=== PATIENT | female | born 1945 | race Caucasian/White ===

== ENCOUNTER 2017-09-16 13:17 | Emergency (ER) | payer MEDICARE, OTHER ==
[~2017-09-16 13:17] MED LIST: Sodium Chloride 0.9% 1,000 ML BAG ONE
[2017-09-16] MEDS ORDERED: Ondansetron HCl/PF 4 MG/2 ML Vial ONE (14:18)
[2017-09-16] MEDS ORDERED: MORPHINE 10 MG/ML SYRINGE ONE ×2 (14:19→15:16)
[2017-09-16] MEDS ORDERED: diphenhydrAMINE 50 MG/ML VIAL ONE (14:20)
[2017-09-16] MEDS ORDERED: Ketorolac Tromethamine 30 MG/ML VIAL ONE (14:20)
[2017-09-16] MEDS ORDERED: Metoclopramide HCl 10 MG/2 ML VIAL ONE ×3 (14:20→14:21)
[2017-09-16] MEDS ORDERED: cloNIDine 0.1 MG TAB ONE (15:51)
[2017-09-16] MEDS ORDERED: Labetalol HCl 100 MG/20 ML VIAL ONE (16:44)
== END 2017-09-16 18:10 | disposition home or self-care (01) ==
LOC: MADERS 13:17
DX: G43.909 Migraine, unspecified, not intractable, without status migrainosus (principal); I10 Essential (primary) hypertension; M06.9 Rheumatoid arthritis, unspecified
CPT/HCPCS: 96361; 96374; 96375; 96376; J1200; J1885; J2270; J2405; J2765

== ENCOUNTER 2017-10-19 21:10 | Emergency (ER) | payer MEDICARE ==
[2017-10-19] MEDS ORDERED: MORPHINE 10 MG/ML SYRINGE ONE (21:55)
[2017-10-19] MEDS ORDERED: Promethazine HCl 25 MG/ML VIAL ONE (21:55)
== END 2017-10-19 22:25 | disposition home or self-care (01) ==
LOC: MADERS 21:10
DX: R11.2 Nausea with vomiting, unspecified (principal); I10 Essential (primary) hypertension; G43.909 Migraine, unspecified, not intractable, without status migrainosus; M06.9 Rheumatoid arthritis, unspecified
CPT/HCPCS: 96372; J2270; J2550

== ENCOUNTER 2018-03-15 18:16 | Emergency (ER) | payer MEDICARE ==
[2018-03-15] MEDS ORDERED: Acetaminophen 500 MG TAB ONE (19:07)
[2018-03-15 19:22] LABS: #Basophils 0.1 thou/uL (0.0-0.2); #Eosinphils 0.2 thou/uL (0.0-0.7); #Lymphocytes 2.1 thou/uL (1.20-3.40); #Monocytes 1.3 thou/uL (0.11-0.59); %Basophils 0.6 % (0.0-1.0); %Lymphocytes 17.9 % (21.0-51.0); %Monocytes 11.1 % (0.0-10.0); %Neutrophils 68.4 % (42.0-75.0); Mean Corpuscular HGB CONC 34.1 g/dL (32.0-36.0); Mean Corpuscular Volume 88.1 fL (78.0-98.0); Mean Platelet Volume 6.3 fL (7.4-10.4); Platelet Count 185 thou/uL (130-400); RBC Distribution Width 12.1 % (11.5-14.5); Red Blood Cell (RBC) Count 4.01 mill/uL (4.20-5.40); White Blood Cell (WBC) Count 11.7 thou/uL (4.8-10.8)
[2018-03-15 19:32] LABS: Bilirubin Negative (Negative); Blood, Urine Small (Negative); Clarity Clear (Clear); Glucose, Urine (Dipstick) Negative (Negative); Leukocyte Negative (Negative); Nitrite Negative (Negative); Protein, Urine (Dipstick) > or equal to 300 mg/dL (Neg-Trace); Specific Gravity, Urine 1.015 (1.005-1.030); Urobilinogen 0.2 mg/dL (0.2-1.0)
--- NOTE | 2018-03-15 19:37 | CT ---
NONCONTRAST CT HEAD: 03/15/18 HISTORY: Patient fell and hit front of head. Head injury. COMPARISON: None available. FINDINGS: There is decreased attenuation seen in the right periventricular white matter likely attributable to chronic small vessel ischemic changes. There is no evidence of an acute cortical infarction, hemorrha ge, mass effect, or midline shift. Small low density focus is seen within each basal ganglia, likely related to tiny lacunar infarctions of indeterminate age. Ventricular system is normal in size, shape and position. Mucosal thickening is present in the left sphenoid sinus. The remainder of the visualized paranasal s inuses as well as mastoid air cells are clear. The calvarial structures are intact. IMPRESSION: 1. No acute intracranial abnormalities demonstrated. 2. 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 3. Chronic small vessel ischemic changes. 4. Mild sinus disease involving the left sphenoid sinus. POS: [facility]
[2018-03-15 19:41] LABS: ALT (SGPT) 18 U/L (8-55); AST (SGOT) 19 U/L (5-34); Albumin 3.4 g/dL (3.4-4.8); Alkaline Phosphatase 68 U/L (40-150); Anion Gap 12 mmol/L (10-20); BUN (Urea Nitrogen) 30 mg/dL (9.8-20.1); Bilirubin, Total 0.6 mg/dL (0.2-1.2); Calc. Creatinine Clearance 0 mL/min (70-130); Calcium 9.5 mg/dL (7.8-10.44); Carbon Dioxide 28 mmol/L (23-31); Chloride 104 mmol/L (98-107); Estimated GFR-MDRD 28; Globulin 2.8 g/dL (2.4-3.5); Glucose 110 mg/dL (83-110); Protein, Total 6.2 g/dL (6.0-8.3); Sodium 140 mmol/L (136-145)
[2018-03-15 19:44] LABS: Troponin I 0.013 ng/mL (< 0.028)
[2018-03-15 19:59] LABS: CKMB 8.8 ng/mL (0-6.6)
[2018-03-15 20:01] LABS: RBC/HPF 0-3 HPF (0-3); WBC/HPF 0-3 HPF (0-3)
[2018-03-15 20:02] LABS: Bacteria/HPF Rare-Few HPF (None Seen); Squamous Epithelial 0-3 HPF (0-3)
--- NOTE | 2018-03-15 21:00 | RAD ---
PA AND LATERAL CHEST X-RAY 03/15/18 HISTORY: Fever. COMPARISON: 05/04/16. FINDINGS: The cardiac silhouette and pulmonary vasculature are within normal limits. There is mild elevation of the right hemidiaphragm. Scattered calcified granulomata are again seen in the lungs bilaterally. Bridgette ngs are otherwise clear. Vascular calcifications seen in the thoracic aorta. Chest is stable from ruperto or study. IMPRESSION: No acute cardiopulmonary process. POS: [facility]
[2018-03-15 21:43] LABS: Troponin I Less than 0.010 ng/mL (< 0.028)
[2018-03-15 21:46] LABS: CKMB 8.1 ng/mL (0-6.6)
[2018-03-15] MEDS ORDERED: Morphine 4 MG/ML VIAL ONE (22:48)
== END 2018-03-15 23:50 | disposition short-term general hospital (02) ==
LOC: MADERS 18:16
DX: R41.82 Altered mental status, unspecified (principal); I10 Essential (primary) hypertension; M06.9 Rheumatoid arthritis, unspecified; Z79.899 Other long term (current) drug therapy
CPT/HCPCS: 70450; 71046; 80053; 81003; 81015; 82553; 84443; 84484; 85025; 93005; J2270

== ENCOUNTER 2021-10-28 14:57 | Outpatient (CLI) | payer MEDICARE ==
[2021-10-28 15:46] LABS: Anion Gap 15 mmol/L (10-20); BUN (Urea Nitrogen) 13 mg/dL (9.8-20.1); CK (CPK) 20 U/L (29-168); CRP (Inflammatory) 5.45 mg/dL (= or < 0.5); Calc. Creatinine Clearance 0 mL/min (70-130); Calcium 8.6 mg/dL (7.8-10.44); Carbon Dioxide 32 mmol/L (23-31); Chloride 98 mmol/L (98-107); Glucose 92 mg/dL (83-110); Potassium 3.8 mmol/L (3.5-5.1); Sodium 141 mmol/L (136-145)
[2021-10-28 15:54] LABS: Anisocytosis SLIGHT = 6-15 cells (100X) (0-5/hpf); Band 1 % (5-11); Hemoglobin 7.2 g/dL (12.0-16.0); Hypochromia SLIGHT = 6-15 cells (100X) (0-5/hpf); Lymphocytes 18 % (21-51); MDiff Complete? YES; Mean Corpuscular HGB CONC 27.3 g/dL (32.0-36.0); Mean Corpuscular Hemoglobin 25.1 pg (27.0-31.0); Mean Corpuscular Volume 91.9 fL (78.0-98.0); Mean Platelet Volume 7.1 fL (7.4-10.4); Monocytes 23 % (0-10); Myelocyte 2 % (0-0); Neutrophil 56 % (42-75); Platelet Count 316 thou/uL (130-400); Platelet Morphology Comment Appears Adequate; RBC Distribution Width 15.3 % (11.5-14.5); Red Blood Cell (RBC) Count 2.86 mill/uL (4.20-5.40)
[2021-10-31 04:27] LABS: Follow-up Hematology Comp? YES; Follow-up Result - Hematology REPORT FAXED
== END 2021-10-28 14:58 | disposition home or self-care (01) ==
LOC: MADLAB 14:57
PROVIDERS: ATTEND Internal Medicine Infectious Disease
DX: A41.52 Sepsis due to Pseudomonas (principal); G93.40 Encephalopathy, unspecified; D61.818 Other pancytopenia; D70.8 Other neutropenia
CPT/HCPCS: 80048; 82550; 85025; 85652; 86140

== ENCOUNTER 2024-04-13 18:23 | Emergency (ER) | payer MEDICARE ==
[2024-04-13] MEDS ORDERED: Sodium Chloride 0.9% 1,000 ML ONE (21:19)
[2024-04-13 21:37] LABS: ALT (SGPT) 31 U/L (8-55); AST (SGOT) 30 U/L (5-34); Albumin 3.4 g/dL (3.4-4.8); Alkaline Phosphatase 51 U/L (40-110); Anion Gap 19 mmol/L (10-20); BUN (Urea Nitrogen) 28 mg/dL (9.8-20.1); Bilirubin, Total 1.5 mg/dL (0.2-1.2); Calcium 9.5 mg/dL (7.8-10.44); Carbon Dioxide 25 mmol/L (23-31); Chloride 104 mmol/L (98-107); Glucose 153 mg/dL (83-110); Potassium 5.5 mmol/L (3.5-5.1); Protein, Total 6.4 g/dL (5.8-8.1); Sodium 142 mmol/L (136-145)
[2024-04-13 21:38] LABS: Troponin I 0.013 ng/mL (< 0.028)
[2024-04-13 21:39] LABS: Eosinophils 2 % (0-10); Hematocrit 48.5 % (36.0-47.0); Hemoglobin 15.5 g/dL (12.0-16.0); Lymphocytes 12 % (21-51); MDiff Complete? YES; Mean Corpuscular Hemoglobin 30.6 pg (27.0-31.0); Mean Corpuscular Volume 95.7 fl (78.0-98.0); Mean Platelet Volume 6.6 fL (7.4-10.4); Monocytes 8 % (0-10); Neutrophil 78 % (42-75); Platelet Count 167 10x3/uL (130-400); RBC Distribution Width 14.4 % (11.5-14.5); Red Blood Cell (RBC) Count 5.06 mill/uL (4.20-5.40); White Blood Cell (WBC) Count 5.6 10x3/uL (4.8-10.8)
[2024-04-13 21:50] LABS: Bilirubin Negative (Negative); Blood, Urine Negative (Negative); Glucose, Urine (Dipstick) Negative (Negative); Ketone, Urine Negative (Negative); Leukocyte Negative (Negative); Nitrite Negative (Negative); Protein, Urine (Dipstick) > or equal to 300 mg/dL (Neg-Trace); Urobilinogen 0.2 mg/dL (Less than 2)
[2024-04-13 21:56] LABS: Calc. Creatinine Clearance 0 mL/min (70-130); Estimated GFR 25
[2024-04-13 21:58] LABS: Bacteria/HPF 1+ HPF (None Seen); CAUTI Indications for Culture Pelvic or flank pain; Clarity Slightly Cloudy (Clear); RBC/HPF 0-3 HPF (0-3); Specific Gravity, Urine 1.026 (1.002-1.036); WBC/HPF Greater than 50 HPF (0-3)
[2024-04-13 22:00] LABS: Amphetamine Not Detected (NotDetected); Barbiturates Screen Not Detected (NotDetected); Benzodiazepine Screen Not Detected (NotDetected); Cocaine Metabolite Screen Not Detected (NotDetected); Methadone Not Detected (NotDetected); Methamphetamine Not Detected (NotDetected); Opiate Screen Detected (NotDetected); Oxycodone Screen Not Detected (NotDetected); Phencyclidine (PCP) Not Detected (NotDetected); THC/Cannabinoid Screen Not Detected (NotDetected); Tricyclic Screen Not Detected (NotDetected); Urine Culture Reflex Yes Yes
[2024-04-13] MEDS ORDERED: Nitrofurantoin Monohyd/M-Cryst 100 MG CAP ONE (22:36)
[2024-04-14] MEDS ORDERED: Morphine 4 MG/ML VIAL ONE (00:41)
[2024-04-14] MEDS ORDERED: Ondansetron PF 4 MG/2 ML Vial ONE (00:41)
[2024-04-14] MEDS ORDERED: cefTRIAXone (ROCEPHIN) 1 GM VIAL ONE (03:09)
[2024-04-14] MEDS ORDERED: Morphine 2 MG/ML VIAL ONE (09:26)
[2024-04-14] MEDS ORDERED: Metoprolol Tartrate 50 MG TAB ONE (09:45)
[2024-04-14] MEDS ORDERED: Allopurinol 100 MG TAB PO SCH (10:15)
[2024-04-14] MEDS ORDERED: Apixaban 2.5 MG TAB PO SCH (10:15)
[2024-04-14] MEDS ORDERED: Amlodipine 5 MG TAB PO SCH (10:15)
== END 2024-04-14 17:25 | disposition short-term general hospital (02) ==
LOC: MADERS 18:23
DX: R45.851 Suicidal ideations (principal); M54.50 Low back pain, unspecified; N39.0 Urinary tract infection, site not specified; I10 Essential (primary) hypertension; Z79.01 Long term (current) use of anticoagulants
CPT/HCPCS: 72131; 74176; 80053; 80306; 81001; 83880; 84484; 85025; 87086; J0696; J2272 ×2; J2405; J7030; 51702; 96361; 96374; 96375; 96376

== ENCOUNTER 2024-07-14 17:27 | Emergency (ER) | payer MEDICARE ==
[2024-07-14 18:15] LABS: Blood, Urine Trace (Negative); Clarity Slightly Cloudy (Clear); Glucose, Urine (Dipstick) 250 mg/dL (Negative)
[2024-07-14 18:16] LABS: Ketone, Urine Unable to Interpret mg/dL (Negative); Leukocyte Unable to Interpret (Negative); Nitrite Unable to Interpret (Negative); Protein, Urine (Dipstick) Unable to Interpret mg/dL (Neg-Trace)
[2024-07-14 18:17] LABS: Bilirubin Unable to Interpret (Negative); Urobilinogen UNABLE TO INTERPRET mg/dL (Less than 2)
[2024-07-14 18:20] LABS: CAUTI Indications for Culture Dysuria,urgency,freq; RBC/HPF 0-3 HPF (0-3)
[2024-07-14 18:21] LABS: Bacteria/HPF 3+ HPF (None Seen)
[2024-07-14 18:22] LABS: Urine Culture Reflex Yes Yes
[2024-07-14 18:28] LABS: Anion Gap 15 mmol/L (10-20); BUN (Urea Nitrogen) 23 mg/dL (9.8-20.1); Calc. Creatinine Clearance 0 mL/min (70-130); Calcium 10.2 mg/dL (7.8-10.44); Carbon Dioxide 26 mmol/L (23-31); Chloride 104 mmol/L (98-107); Estimated GFR 30; Glucose 119 mg/dL (83-110); Potassium 4.3 mmol/L (3.5-5.1); Sodium 141 mmol/L (136-145)
[2024-07-14 18:30] LABS: Band 2 % (5-11); Hematocrit 41.7 % (36.0-47.0); Hemoglobin 13.3 g/dL (12.0-16.0); Hypochromia SLIGHT = 6-15 cells (100X) (0-5/hpf); Lymphocytes 44 % (21-51); MDiff Complete? YES; Mean Corpuscular HGB CONC 31.8 g/dL (32.0-36.0); Mean Corpuscular Hemoglobin 30.3 pg (27.0-31.0); Mean Corpuscular Volume 95.1 fl (78.0-98.0); Mean Platelet Volume 6.4 fL (7.4-10.4); Monocytes 5 % (0-10); Neutrophil 38 % (42-75); Platelet Adequacy Comment Appears Adequate; Platelet Count 172 10x3/uL (130-400); RBC Distribution Width 13.7 % (11.5-14.5); Red Blood Cell (RBC) Count 4.39 mill/uL (4.20-5.40); White Blood Cell (WBC) Count 2.4 10x3/uL (4.8-10.8)
== END 2024-07-14 18:43 | disposition home or self-care (01) ==
LOC: MADERS 17:27
DX: N39.0 Urinary tract infection, site not specified (principal); I10 Essential (primary) hypertension
CPT/HCPCS: 36415; 80048; 81001; 85025; 87086; 99283

== ENCOUNTER 2024-12-20 09:32 | Emergency (ER) | payer MEDICARE ==
[~2024-12-20 09:32] MED LIST changes: +Iopamidol 370 76% 100 ML VIAL ONE; -Sodium Chloride 0.9% 1,000 ML BAG ONE
[2024-12-20] MEDS ORDERED: Acetaminophen 500 MG TAB ONE (10:03)
[2024-12-20 10:19] LABS: Hematocrit 37.7 % (36.0-47.0); Hemoglobin 11.8 g/dL (12.0-16.0); Mean Corpuscular HGB CONC 31.3 g/dL (32.0-36.0); Mean Corpuscular Hemoglobin 29.6 pg (27.0-31.0); Mean Corpuscular Volume 94.7 fl (78.0-98.0); Platelet Count 110 10x3/uL (130-400); RBC Distribution Width 17.8 % (11.5-14.5); Red Blood Cell (RBC) Count 3.98 mill/uL (4.20-5.40); White Blood Cell (WBC) Count 6.5 10x3/uL (4.8-10.8)
[2024-12-20 10:26] LABS: ALT (SGPT) 13 U/L (Less than 34); AST (SGOT) 17 U/L (11-34); Albumin 2.6 g/dL (3.1-4.5); Alkaline Phosphatase 75 U/L (40-110); Anion Gap 15 mmol/L (10-20); BUN (Urea Nitrogen) 21 mg/dL (9.8-20.1); Band 3 % (5-11); Calc. Creatinine Clearance 0 mL/min (70-130); Carbon Dioxide 25 mmol/L (23-31); Chloride 104 mmol/L (98-107); Estimated GFR 37; Globulin 2.7 g/dL (2.4-3.5); Glucose 111 mg/dL (83-110); Lymphocytes 10 % (21-51); MDiff Complete? YES; Manual Diff?? YES; Monocytes 9 % (0-10); Neutrophil 78 % (42-75); Potassium 3.9 mmol/L (3.5-5.1); Protein, Total 5.3 g/dL (5.8-8.1); Sodium 140 mmol/L (136-145)
[2024-12-20 10:27] LABS: Platelet Adequacy Comment Appears Decreased; RBC Morph Comment Within Normal Limits
[2024-12-20] MEDS ORDERED: Sodium Chloride 0.9% 500 ML ONE (11:30)
[2024-12-20 12:03] LABS: Prothrombin Time 13.5 sec (12.0-14.7)
[2024-12-20 12:04] LABS: PTT 31.3 sec (22.9-36.1)
[2024-12-20 12:14] LABS: Troponin I 0.151 ng/mL (< 0.028)
[2024-12-20] MEDS ORDERED: Heparin 10,000 UNITS/ 10 ML VIAL ONE (12:31)
[2024-12-20] MEDS ORDERED: Heparin 25,000 units/D5W 500 ML ONE (12:31)
[2024-12-20 14:15] LABS: Bilirubin Negative (Negative); Blood, Urine Small (Negative); Clarity Clear (Clear); Glucose, Urine (Dipstick) Negative (Negative); Ketone, Urine 15 mg/dL (Negative); Leukocyte Negative (Negative); Nitrite Negative (Negative); Protein, Urine (Dipstick) > or equal to 300 mg/dL (Neg-Trace); Specific Gravity, Urine 1.015 (1.005-1.030); pH, Urine 5.5 (5.0-9.0)
[2024-12-20 14:19] LABS: Bacteria/HPF 1+ HPF (None Seen); CAUTI Indications for Culture Dysuria,urgency,freq; RBC/HPF 0-3 HPF (0-3); WBC/HPF 0-3 HPF (0-3)
[2024-12-20 14:20] LABS: Urine Culture Reflex No No
== END 2024-12-20 14:10 | disposition short-term general hospital (02) ==
LOC: MADERS 09:32
DX: I26.99 Other pulmonary embolism without acute cor pulmonale (principal); M48.54XA Collapsed vertebra, not elsewhere classified, thoracic region, initial encounter for fracture; I10 Essential (primary) hypertension; E78.5 Hyperlipidemia, unspecified; Z55.6 Problems related to health literacy; Z79.01 Long term (current) use of anticoagulants; Z79.899 Other long term (current) drug therapy
CPT/HCPCS: 36415; 71275; 74176; 80053; 81001; 83880; 84484; 85025; 85379; 85610; 85730; 93005; 96374; 96375; J1644; J7030; Q9967